=== PATIENT | female | born 2000 | race Caucasian/White ===

== ENCOUNTER 2023-07-05 09:02 | Emergency (ER) | payer MEDICAID, OTHER ==
[~2023-07-05] VITALS: Ht 157.5 cm; Wt 79.4 kg
[2023-07-05 09:10] VITALS: O2SAT 100
[2023-07-05] MEDS: KETOROLAC 30MG/ML VIAL IM ONE (10:35)
[2023-07-05] MEDS: DEXAMETHASONE 10 MG/ML VIAL PO ONE (10:43)
[2023-07-05] MEDS: ONDANSETRON 4MG ODT PO ONE (10:45)
[2023-07-05] MEDS ORDERED: BENZ1LOZ73 MT (10:54)
[2023-07-05] MEDS ORDERED: IBUP-2029 MT (10:54)
[2023-07-05] MEDS: PENICILLIN G BENZATHINE 1,200,000 UNITS/2ML SYR IM ONE (11:18)
[2023-07-05 11:20] VITALS: BP 121/65; PULSE 135; RESP 16
[2023-07-05 11:50] VITALS: TEMP 100.3
[2023-07-05] MEDS: ACETAMINOPHEN 325MG TABLET PO ONE (11:50)
== END 2023-07-05 11:58 | disposition home or self-care (01) ==
LOC: ER 09:02
DX: J03.00 Acute streptococcal tonsillitis, unspecified (principal)
CPT/HCPCS: 99284; 81025; 87430; 96372; J0561; Q0162; J1100; J1885

== ENCOUNTER 2024-02-15 20:22 | Emergency (ER) | payer MEDICAID, OTHER ==
[~2024-02-15] VITALS: Ht 157.5 cm; Wt 81.0 kg
[~2024-02-15 20:22] MED LIST: BENZ1LOZ73 MT; IBUP-2029 MT
[2024-02-15 20:57] VITALS: O2SAT 99
[2024-02-15 21:11] VITALS: BP 147/91; PULSE 120; RESP 16; TEMP 98.8; O2SAT 99
[2024-02-15 22:53] LABS: CLARITY URINE CLEAR (CLEAR); COLOR URINE YELLOW (YELLOW)
[2024-02-15 22:54] LABS: GLUCOSE URINE NEGATIVE (NEGATIVE); KETONES URINE NEGATIVE (NEGATIVE); LEUKOCYTE ESTERASE URINE NEGATIVE (NEGATIVE); NITRITE URINE NEGATIVE (NEGATIVE); OCCULT BLOOD URINE NEGATIVE (NEGATIVE); PROTEIN URINE NEGATIVE (NEGATIVE)
[2024-02-16] MEDS: ONDANSETRON 4MG ODT PO ONE (01:00)
[2024-02-16 02:16] LABS: BASOPHILS % 0.5 % (0.0-2.0); EOSINOPHILS % 1.2 % (0.0-5.0); HEMATOCRIT. 37.2 % (36.0-48.0); HEMOGLOBIN. 12.4 g/dL (12.0-16.0); LYMPHOCYTES % 36.5 % (20.0-50.0); MEAN CORPUSCULAR HEMOGLOBIN 28.7 pg (28.0-32.0); MEAN CORPUSCULAR HGB CONC 33.5 g/dL (31.0-37.0); MEAN CORPUSCULAR VOLUME 85.6 fL (81.0-99.0); MEAN PLATELET VOLUME 8.5 fl (7.4-10.4); MONOCYTES % 6.9 % (2.0-8.0); NEUTROPHILS % 54.9 % (40.0-76.0); PLATELET 415 x1000/uL (130-400); RED BLOOD CELL COUNT 4.34 mill/uL (4.2-5.4); RED CELL DISTRIBUTION WIDTH 14.5 % (11.6-14.6); WHITE BLOOD COUNT 14.4 x1000/uL (4.5-11.0)
[2024-02-16 02:23] LABS: CHLORIDE 106 mEq/L (98-107); POTASSIUM 3.9 mEq/L (3.5-5.1); SODIUM 136 mEq/L (136-145)
[2024-02-16 02:24] LABS: CALCIUM 9.2 mg/dL (8.7-10.4); CARBON DIOXIDE 22 mEq/L (21-32)
[2024-02-16 02:29] LABS: GLUCOSE 84 mg/dL (70-105); UREA NITROGEN BLOOD 5 mg/dL (9-23)
[2024-02-16 03:18] LABS: B-HCG QUANTITATIVE 8644 mIU/mL (<3); CREATININE 0.5 mg/dL (0.6-1.0)
== END 2024-02-16 03:40 | disposition left against medical advice (07) ==
LOC: ER 20:22
DX: O26.891 Other specified pregnancy related conditions, first trimester (principal); R10.32 Left lower quadrant pain; Z3A.01 Less than 8 weeks gestation of pregnancy; F10.90 Alcohol use, unspecified, uncomplicated; F12.90 Cannabis use, unspecified, uncomplicated; Y90.9 Presence of alcohol in blood, level not specified
CPT/HCPCS: 36415; 76801; 80048; 81003; 81025; 84702; 85025; 86850; 86900; 99284

== ENCOUNTER 2024-04-16 15:26 | Emergency (ER) | payer OTHER ==
[~2024-04-16] VITALS: Ht 162.6 cm; Wt 70.0 kg
[2024-04-16 16:09] VITALS: O2SAT 99
[2024-04-16] MEDS ORDERED: METOCLOPRAMIDE 10MG/10 ML UDC PO ONE (19:00)
[2024-04-16] MEDS: METOCLOPRAMIDE 10MG/10 ML UDC PO NR (19:19)
[2024-04-16] MEDS: ACETAMINOPHEN 325MG TABLET PO ONE (19:19)
[2024-04-16] MEDS: DIPHENHYDRAMINE 12.5MG/5ML UDC PO ONE (19:19)
[2024-04-16 20:30] LABS: BASOPHILS % 0.4 % (0.0-2.0); EOSINOPHILS % 1.6 % (0.0-5.0); HEMATOCRIT. 36.5 % (36.0-48.0); HEMOGLOBIN. 12.2 g/dL (12.0-16.0); LYMPHOCYTES % 31.6 % (20.0-50.0); MEAN CORPUSCULAR HEMOGLOBIN 28.8 pg (28.0-32.0); MEAN CORPUSCULAR HGB CONC 33.5 g/dL (31.0-37.0); MEAN CORPUSCULAR VOLUME 86.1 fL (81.0-99.0); MEAN PLATELET VOLUME 9.3 fl (7.4-10.4); MONOCYTES % 6.4 % (2.0-8.0); PLATELET 372 x1000/uL (130-400); RED BLOOD CELL COUNT 4.24 mill/uL (4.2-5.4); RED CELL DISTRIBUTION WIDTH 14.1 % (11.6-14.6); WHITE BLOOD COUNT 13.3 x1000/uL (4.5-11.0)
[2024-04-16 20:36] LABS: CHLORIDE 104 mEq/L (98-107); POTASSIUM 4.1 mEq/L (3.5-5.1); SODIUM 137 mEq/L (136-145)
[2024-04-16 20:37] LABS: CALCIUM 9.8 mg/dL (8.7-10.4); CARBON DIOXIDE 24 mEq/L (21-32)
[2024-04-16 20:41] LABS: URIC ACID 3.5 mg/dL (3.1-7.8)
[2024-04-16 20:42] LABS: CREATININE 0.5 mg/dL (0.6-1.0); GLUCOSE 91 mg/dL (70-105)
[2024-04-16 20:43] LABS: UREA NITROGEN BLOOD 7 mg/dL (9-23)
[2024-04-16 20:44] LABS: ALANINE AMINOTRANSFERASE 16 IU/L (10-49); ALBUMIN 4.3 g/dL (3.2-4.8); ASPARTATE AMINOTRANSFERASE 26 IU/L (<34); LACTATE DEHYDROGENASE 140 IU/L (120-246)
[2024-04-16 20:45] LABS: BILIRUBIN TOTAL 0.3 mg/dL (0.1-1.0); PROTEIN TOTAL 7.6 g/dL (6.0-8.3)
[2024-04-16 20:47] LABS: BILIRUBIN DIRECT < 0.1 mg/dL (<=3.0)
[2024-04-16] MEDS ORDERED: LIDO700A30 TP (20:56)
[2024-04-16 21:06] VITALS: BP 135/65; PULSE 97; RESP 18; TEMP 37.1; O2SAT 100
== END 2024-04-16 21:09 | disposition home or self-care (01) ==
LOC: ER 15:26
DX: O26.892 Other specified pregnancy related conditions, second trimester (principal); R51.9 Headache, unspecified; F32.A Depression, unspecified; F10.90 Alcohol use, unspecified, uncomplicated; F12.90 Cannabis use, unspecified, uncomplicated; Z3A.14 14 weeks gestation of pregnancy; Y90.9 Presence of alcohol in blood, level not specified
CPT/HCPCS: 99284; 70450; 80076; 80048; 83615; 84550; 85025; 36415; Q0163; J8597

== ENCOUNTER 2024-06-21 10:43 | Emergency (ER) | payer OTHER ==
[~2024-06-21] VITALS: Ht 157.5 cm; Wt 97.0 kg
[~2024-06-21 10:43] MED LIST changes: +LIDO700A30 TP
[2024-06-21 10:52] VITALS: O2SAT 98
[2024-06-21 11:30] LABS: BASOPHILS % 0.2 % (0.0-2.0); EOSINOPHILS % 0.8 % (0.0-5.0); HEMATOCRIT. 39.2 % (36.0-48.0); HEMOGLOBIN. 12.8 g/dL (12.0-16.0); LYMPHOCYTES % 16.7 % (20.0-50.0); MEAN CORPUSCULAR HEMOGLOBIN 28.2 pg (28.0-32.0); MEAN CORPUSCULAR HGB CONC 32.7 g/dL (31.0-37.0); MEAN CORPUSCULAR VOLUME 86.3 fL (81.0-99.0); MEAN PLATELET VOLUME 9.8 fl (7.4-10.4); MONOCYTES % 5.2 % (2.0-8.0); NEUTROPHILS % 77.1 % (40.0-76.0); PLATELET 355 x1000/uL (130-400); RED BLOOD CELL COUNT 4.55 mill/uL (4.2-5.4); RED CELL DISTRIBUTION WIDTH 13.3 % (11.6-14.6); WHITE BLOOD COUNT 16.4 x1000/uL (4.5-11.0)
[2024-06-21 11:39] LABS: CHLORIDE 103 mEq/L (98-107); POTASSIUM 4.2 mEq/L (3.5-5.1); SODIUM 134 mEq/L (136-145)
[2024-06-21 11:40] LABS: CALCIUM 9.6 mg/dL (8.7-10.4); CARBON DIOXIDE 22 mEq/L (21-32)
[2024-06-21 11:45] LABS: CREATININE 0.4 mg/dL (0.6-1.0); GLUCOSE 84 mg/dL (70-105); UREA NITROGEN BLOOD 5 mg/dL (9-23)
[2024-06-21 11:47] LABS: ALANINE AMINOTRANSFERASE 34 IU/L (10-49); ALBUMIN 4.2 g/dL (3.2-4.8); ASPARTATE AMINOTRANSFERASE 57 IU/L (<34); BILIRUBIN TOTAL 0.4 mg/dL (0.1-1.0); PROTEIN TOTAL 7.6 g/dL (6.0-8.3)
[2024-06-21 11:50] LABS: CLARITY URINE CLEAR (CLEAR); COLOR URINE YELLOW (YELLOW); GLUCOSE URINE NEGATIVE (NEGATIVE); KETONES URINE NEGATIVE (NEGATIVE); LEUKOCYTE ESTERASE URINE NEGATIVE (NEGATIVE); NITRITE URINE POSITIVE (NEGATIVE); OCCULT BLOOD URINE 1+ (NEGATIVE); PH URINE 7.5 (4.5-8.0); PROTEIN URINE NEGATIVE (NEGATIVE); SPECIFIC GRAVITY URINE 1.017 (1.005-1.030); UROBILINOGEN URINE 0.2 E.U./dL (0.2-1.0)
[2024-06-21 11:55] LABS: B-HCG QUANTITATIVE > 1000 mIU/mL (<6)
[2024-06-21 12:11] LABS: SQUAMOUS EPITHELIAL CELL URINE 1+ /lpf (RARE/1+)
[2024-06-21 12:12] LABS: MUCUS URINE 1+ /lpf (< = 2+); RBC URINE 0-2 /hpf (0-2)
[2024-06-21 12:13] LABS: BACTERIA URINE 2+
[2024-06-21 12:38] VITALS: BP 116/73; PULSE 94; RESP 17; TEMP 36.8; O2SAT 100
== END 2024-06-21 12:51 | disposition short-term general hospital (02) ==
LOC: ER 10:57
DX: O46.92 Antepartum hemorrhage, unspecified, second trimester (principal); O26.892 Other specified pregnancy related conditions, second trimester; Z3A.24 24 weeks gestation of pregnancy; Z79.899 Other long term (current) drug therapy
CPT/HCPCS: 36415; 76805; 80053; 81003; 81025; 84702; 85025; 86850; 86900; 99285